=== PATIENT | male | born 1935 | race Caucasian/White ===

== ENCOUNTER 2016-12-30 10:51 | Emergency (ER) | payer MEDICARE, BC ==
[~2016-12-30] VITALS: Ht 172.7 cm; Wt 68.2 kg
[2016-12-30 10:56] VITALS: TEMP 97.4
[2016-12-30] MEDS ORDERED: COLCHICINE (11:16)
[2016-12-30] MEDS ORDERED: [UNRECOGNIZED DRUG - OTHER] (11:16)
[2016-12-30] MEDS ORDERED: LEXAPRO20 MG PO (11:17)
[2016-12-30] MEDS ORDERED: COZAAR 50MG50 MG/TAB PO (11:17)
[2016-12-30] MEDS ORDERED: TOPROL XL 25MG25 MG PO (11:17)
[2016-12-30] MEDS ORDERED: MULTIPLE VITAMI1 CAP PO (11:18)
[2016-12-30] MEDS ORDERED: LIPITOR 40MG TA40 MG PO (11:18)
[2016-12-30] MEDS ORDERED: ASPIRIN 81M81 MG/TA2 PO (11:18)
[2016-12-30] MEDS ORDERED: VITAMIN D 1001000 IU (11:20)
[2016-12-30 12:04] LABS: BASO # 0.1 (0.0-0.2); BASO % 0.6 % (0.0-2.0); EOS # 0.1 (0.0-0.7); EOS % 0.9 % (0-4.0); GRAN # 6.8 (1.4-6.5); GRAN % 74.9 % (42.2-75.2); HEMATOCRIT 45.1 % (42.0-52.0); HEMOGLOBIN 14.8 g/dl (13.5-18.0); LYMPH # 1.1 (1.2-3.4); LYMPH % 12.4 % (20.0-51.0); MEAN CELL VOLUME 98 fl (80.0-100.0); MEAN CORPUSCULAR HEMOGLOBIN 32 pg (27.0-31.0); MEAN CORPUSCULAR HGB CONC 33 g/dl (33.0-37.0); MEAN PLATELET VOLUME 11.2 fl (7.4-10.4); MONO % 10.9 % (1.7-9.3); PLATELET COUNT 160 K/mm3 (130-400); RED BLOOD COUNT 4.59 M/mm3 (4.20-5.60); WHITE BLOOD COUNT 9.1 K/mm3 (4.8-10.8)
[2016-12-30 12:14] LABS: ADJUSTED CALCIUM 9.4 mg/dL (8.4-10.2); ALBUMIN 3.7 gm/dL (3.5-5.0); CALCIUM 9.2 mg/dL (8.4-10.2); CREATININE, serum 0.89 mg/dL (0.66-1.25); POTASSIUM 3.9 mmol/L (3.4-5.0); TOTAL PROTEIN 6.4 gm/dL (6.4-8.2)
[2016-12-30 12:26] LABS: TROPONIN-I 0.012 ng/mL (0.000-0.034)
[2016-12-30] MEDS ORDERED: LASIX 20MG TABL20 MG PO (14:26)
[2016-12-30] MEDS ORDERED: K-DUR 10 MEQ T10 MEQ PO (14:26)
[2016-12-30 15:04] VITALS: BP 112/78; PULSE 62
== END 2016-12-30 15:06 | disposition home or self-care (01) ==
LOC: COL.ER 10:51
PROVIDERS: Emergency Medicine
DX: I11.0 Hypertensive heart disease with heart failure (principal); I50.9 Heart failure, unspecified; I25.10 Atherosclerotic heart disease of native coronary artery without angina pectoris; G20 Parkinson's disease; Z79.82 Long term (current) use of aspirin; Z87.891 Personal history of nicotine dependence

== ENCOUNTER 2017-07-26 10:36 | Outpatient (RCR) | payer MEDICARE, BC ==
[~2017-07-26 10:36] MED LIST: ASPIRIN 81M81 MG/TA2 PO; COLCHICINE; COZAAR 50MG50 MG/TAB PO; K-DUR 10 MEQ T10 MEQ PO; LASIX 20MG TABL20 MG PO; LEXAPRO20 MG PO; LIPITOR 40MG TA40 MG PO; MULTIPLE VITAMI1 CAP PO; TOPROL XL 25MG25 MG PO; VITAMIN D 1001000 IU; [UNRECOGNIZED DRUG - OTHER]
== END 2017-10-24 | disposition home or self-care (01) ==
LOC: MKS.ESL.PT → WSST 07-29 11:00
DX: G20 Parkinson's disease (principal); F02.80 Dementia in other diseases classified elsewhere, unspecified severity, without behavioral disturbance, psychotic disturbance, mood disturbance, and anxiety; Z91.81 History of falling
CPT/HCPCS: G8978-GP; G8979-GP; G8980-GP